=== PATIENT | female | born 2000 | race Two or more races ===

== ENCOUNTER → 2024-08-30 | Outpatient (CLI) | payer OTHER ==
[2024-08-30 11:43] LABS: Urine Bacteria None Seen /hpf (None Seen)
[2024-08-30 12:20] LABS: Urine Blood Negative /uL (Negative); Urine Clarity Clear (Clear); Urine Color Light-Yellow (Yellow); Urine Protein, UAD Negative (Negative); Urine Urobilinogen Normal (Negative); Urine WBC 1 /hpf (0 - 5); Urine pH 6.5 (5.0-9.0)
[2024-08-30 12:22] LABS: Basophils # (auto) 0 10 ^3/uL (0-0.2); Basophils % (auto) 0.5 % (0.0-2.0); Eosinophils # (auto) 0.3 10 ^3/uL (0-0.8); Eosinophils % (auto) 2.7 % (0.0-7.0); Hemoglobin 13.4 g/dL (12.2-16.2); Lymphocytes # (auto) 3.4 10 ^3/uL (0.4-5.4); Lymphocytes % (auto) 32.1 % (10.0-50.0); Mean Corpuscular Hemoglobin 27.4 pg (28.0-32.0); Mean Corpuscular Hgb Conc. 33.4 g/dL (32.0-36.0); Monocytes # (auto) 0.6 10 ^3/uL (0-1.3); Monocytes % (auto) 5.3 % (0.0-12.0); Neutrophils # (auto) 6.2 10 ^3/uL (1.6-8.6); Neutrophils % (auto) 59.4 % (37.0-80.0); Nucleated Red Blood Cells % 0.1 %; Platelet Count (auto) 304 10^3/uL (140-450); Red Blood Cells 4.88 10^6/uL (4.0-5.20); Red Cell Distribution Width 13.6 % (11.8-14.3); White Blood Cell 10.5 10^3/uL (4.4-10.8)
[2024-08-30 12:40] LABS: Uric Acid 4.4 mg/dL (3.1-7.8)
[2024-08-30 12:43] LABS: % Iron Saturation 16.1 % (15-50)
== END | disposition home or self-care (01) ==
LOC: LAB 11:18
PROVIDERS: ATTEND Family Medicine
DX: Z00.00 Encounter for general adult medical examination without abnormal findings (principal)
CPT/HCPCS: 36415; 81001; 82306; 82607; 83036; 83540; 83550; 83735; 84443; 84550; 85025; 87086

== ENCOUNTER 2025-07-12 11:11 | Emergency (ER) | payer OTHER ==
[~2025-07-12] VITALS: Ht 170.2 cm; Wt 148.3 kg
[2025-07-12 11:13] VITALS: BP 134/87; PULSE 104; RESP 15; TEMP 98.3; O2SAT 96
--- NOTE | 2025-07-12 12:00 | ED.PDOC ---
History of Present Illness(SKN HPI Comments A 25 YEAR OLD FEMALE PRESENTS TO THE ED WITH COMPLAINT OF ABSCESS. PT HAS CYST TO THE LOWER BACK FOR THE PAST 7 DAYS. PT IN THE ED HAS STABLE VITALS. PATIENT DENIES FEVER, CHILLS, SHORTNESS OF BREATH, CHEST PAIN, ABDOMINAL PAIN, NAUSEA, VOMITING, HEADACHE, OR OTHER COMPLAINTS. NO OTHER SYMPTOMS OR MODIFYING FACTORS AT THIS TIME. PATIENT IS ALERT, ORIENTED X 4, AND HAS STEADY GAIT. Chief Complaint: ABSCESS Time Seen by MD: 11:58 History of Present Illness: Nurses Notes, Medications, Allergies Allergies: Coded Allergies: NO KNOWN ALLERGIES (Unverified , 07/12/25) Home Meds Active Scripts Sulfamethoxazole W/Trimethopri (Bactrim Ds Tablet) 1 Tab Tb, 1 TAB PO BID for 10 Days, #20 TAB Prov:ANA M FAGAN 07/12/25 Ibuprofen (Ibuprofen) 800 Mg Tab, 1 TAB PO TID, #30 TAB Prov:ANA M FAGAN 07/12/25 Information Source: Patient Mode of Arrival: Ambulatory Brought in by: SELF Severity: Mild, Moderate Timing: Days Duration: Since onset, Days Prehospital treatment: None Location: Other ([facility] ) Mechanism: Preceding Wound Wound Type: Abscess Associated Signs and Symptoms: Redness, Swelling, Pus, Pain Past Medical History PAST MEDICAL HISTORY: Denies Surgical History: Denies all surgeries COMMUNITY OUTREACH DIRECTOR History: Denies all COMMUNITY OUTREACH DIRECTOR Hx Family History Family History: Reviewed,noncontributory to illness Social History Smoker: Non-Smoker Alcohol: Denies ETOH Use Drugs: Denies Drug Use Lives In: Home Constitutional: denies: chills, diaphoresis, fatigue, fever, malaise, sweats, weakness, others EENTM: denies: blurred vision, double vision, ear bleeding, ear discharge, ear drainage, ear pain, ear ringing, eye pain, eye redness, hearing loss, mouth pain, mouth swelling, nasal discharge, nose bleeding, nose congestion, nose pain, photophobia, tearing, throat pain, throat swelling, voice changes, others Respiratory: denies: cough, hemoptysis, orthopnea, SOB at rest, shortness of breath, SOB with excertion, stridor, wheezing, others Cardiovascular: denies: chest pain, dizzy spells, diaphoresis, Dyspnea on exertion, edema, irregular heart beat, left arm pain, lightheadedness, palpitations, PND, syncope, others Gastrointestinal: denies: abdomen distended, abdominal pain, blood streaked bowels, constipated, diarrhea, dysphagia, difficulty swallowing, hematemesis, melena, nausea, poor appetite, poor fluid intake, rectal bleeding, rectal pain, vomiting, others Genitourinary: denies: abnormal vagina bleeding, burning, dyspareunia, dysuria, flank pain, frequency, hematuria, incontinence, pain, , vagina discha rge, urgency, others Neurological: denies: dizziness, fainting, headache, left sided numbness, left sided weakness, numbness, paresthesia, pre-existing deficit, right sided numbness, right sided weakness, seizure, speech problems, tingling, tremors, weakness, others Musculoskeletal: denies: back pain, gout, joint pain, joint swelling, muscle pain, muscle stiffness, neck pain, others Integumetry: reports: lumps, others (ABSCESS TO LOWER BACK); denies: bruises, change in color, change in hair/nails, dryness, laceration, lesions, rash, wounds Allergic/Immunocompromised: denies: Difficulty Healing, Frequent Infections, Hives, Itching, others Hematologic/Lymphatic: denies: anemia, blood clots, easy bleeding, easy bruising, swollen glands, others Endocrine: denies: excessive hunger, excessive sweating, excessive thirst, excessive urination, flushing, intolerance to cold, intolerance to heat, unexplained weight gain, unexplained weight loss, others Psychiatric: denies: anxiety, bipolar disorder, depression, hopeless, panic disorder, schizophrenia, sleepless, suicidal, others All Other Systems: Reviewed and Negative Physical Exam General Appearance: Obese HEENT: Normal ENT Inspection, PERRL/EOMI, Pharynx Normal, TMs Normal Neck: Full Range of Motion, Non-Tender, Normal, Normal Inspection Respiratory: Chest Non-Tender, Lungs Clear, No Accessory Muscle Use, No Respiratory Distress, Normal Breath Sounds Cardiovascular: No Edema, No JVD, No Murmur, No Gallop, Normal Peripheral Pulses, Regular Rate/Rhythm Breast Exam: Deferred Gastrointestinal: No Organomegaly, Non Tender, No Pulsatile Mass, Normal Bowel Sounds, Soft Genitalia: Deferred Pelvic: Deferred Rectal: Deferred Extremities: No calf tenderness, Normal capillary refill, Normal range of motion, No pedal edema, Tender (WITH ABSCESS WOUND ON [place]. ) Musculoskeletal : Apperance: Normal Neurologic: Alert, iuss master analyst II-XII nml as Tested, No Motor Deficits, Normal Affect, Normal Mood, No Sensory Deficits Cerebellar Function: Normal Reflexes: Normal Skin: Dry, Normal Color, Warm, Wounds (ABSCESS WOUND WITH LOCALIZED REDNESS, SWELLING AND AL;LD PUS DRAINAGE ON [place], +PILONIDAL ABSCESS. ) Peripheral Pulses: 2+ carotid (R), 2+ carotid (L) Lymphatic: No Adenopathy Was a procedure done? Was a procedure done?: Yes Sedation Sedation?: No Incision and Drainage Incision and Drainage: Abscess Location [facility] Anesthetic: Lidocaine Preparation: Betadine, Saline Incision and Wound: Pus, Seroma, Amount, Irrigated, Packed Informed consent obtained: No Risks/benefits/alt described: Yes Differential Diagnosis (INTG) Differential Diagnosis: Puncture Wound Differential Diagnosis: Abscess, Cellulitis Differential Diagnosis: Retained Foreign Body (PILONIDAL CYST) Abscess: Abscess, Bacteremia, Cellulitis, Other X-Ray, Labs, Meds, VS Vital Signs Date Time Temp Pulse Resp B/P (MAP) Pulse Ox O2 Delivery O2 Flow Rate FiO2 07/12/25 11:13 98.3 104 15 134/87 (103) 96 98.3 07/12/25 11:13 104 15 96 Room Air 07/12/25 11:12 98.3 104 15 134/87 96 98.3 X-Ray, Labs, Meds, VS Comment COURSE: EXTERNAL MEDICAL RECORDS REVIEWED: [NONE] INDEPENDENT HISTORIANS: [NONE] SOCIAL DETERMINANTS OF HEALTH: [NONE] LABS ORDERED: NONE REVIEWED AND INTERPRETED RESULTS: NONE IMAGING ORDERED: NONE TREATMENTS ORDERED: ABSCESS I & D PROCEDURES PERFORMED: NONE CRITICAL CARE TIME: NONE I HAVE DISCUSSED THE PATIENT WITH THE ATTENDING PHYSICIAN DR. WILLIAM AND HE AGREES WITH THE PATIENT'S PLAN OF CARE AND DISPOSITION. BASED ON HISTORY OF PRESENT ILLNESS, AND PHYSICAL EXAM, PATIENT WILL BE DISCHARGED HOME. DISCUSSED PLAN FOR DISCHARGE HOME WITH RX [SEPTRA DS AND MOTRIN ]. MEDICATION WARNINGS GIVEN. SHARED DECISION MAKING: DISCUSSED WITH PATIENT THAT THEIR WORKUP WAS NORMAL. PATIENT INSTRUCTED TO FOLLOW UP WITH PRIMARY CARE PROVIDER IN 1-2 DAYS FOR RE- EVALUATION OF SYMPTOMS. PATIENT VERBALIZES UNDERSTANDING TO RETURN TO ED FOR NEW OR WORSENING SYMPTOMS OR IF FOLLOW UP WITH PCP CANNOT BE OBTAINED. PATIENT FEELS COMFORTABLE GOING HOME AT THIS TIME. ALL QUESTIONS ADDRESSED AT TIME OF DISCHARGE. Time of 1ST Reevaluation: 12:56 Reevaluation 1ST: Improved Patient Education/Counseling: Diagnosis, Treatment, Need For Follow Up Family Education/Counseling: Diagnosis, Treatment, No Family Present Medical Screening: No EMC Exist At This Time SEPSIS Sepsis Screen Date sepsis recognized/suspect: Jul 12, 2025 Time Sepsis recognized/suspect: 1114 Recent Procedure: No On Antibiotic Therapy: No Respiratory Rate >20: No Heart Rate >90: Yes Temp<36 C (96.8 F) or >38.3 C: No SBP <90 or MAP <65 mmHG: No New Acute Mental Status Change: No Is the patient on CPAP, BIPAP,: No Vital Signs Date Time Temp Pulse Resp B/P (MAP) Pulse Ox O2 Delivery O2 Flow Rate FiO2 07/12/25 11:13 98.3 104 15 134/87 (103) 96 98.3 07/12/25 11:13 104 15 96 Room Air 07/12/25 11:12 98.3 104 15 134/87 96 98.3 Departure 1 Departure Time of Disposition: 12:57 Impression: Primary Impression: Pilonidal abscess Disposition: 01 HOME / SELF CARE / HOMELESS Condition: Stable Additional Instructions: INSTRUCTIONS: FOLLOW-UP WITH PCP IN 1 TO 2 DAYS. TAKE MEDICATIONS PRESCRIBED. RETURN TO ED FOR ANY NEW OR WORSENING SYMPTOMS. e-Prescriptions Sulfamethoxazole W/Trimethopri (Bactrim Ds Tablet) 1 Tab Tb 1 TAB PO BID for 10 Days, #20 TAB Prov: ANA M FAGAN 07/12/25 Ibuprofen (Ibuprofen) 800 Mg Tab 1 TAB PO TID, #30 TAB Prov: ANA M FAGAN 07/12/25 Discharged With: Self Critical Care Note Critical Care Time?: No Stability Stability form required: No Heart Score Heart Score: Heart Score Response (Comments) Value History N/A 0 EKG N/A 0 Age N/A 0 Risk Factors N/A 0 Troponin N/A 0 Total 0 I personally scribed for ANA M FAGAN ([email or web address]) on 07/12/25 at 12:00. Electronically submitted by Junior Edward ([facility] I personally scribed for ANA M FAGAN ([email or web address]) on 07/12/25 at 12:10. Electronically submitted by Junior Edward ([email or web address]). ANA M FAGAN Jul 12, 2025 12:00
[2025-07-12] MEDS ORDERED: IBUP-1456 PO (12:11)
[2025-07-12] MEDS ORDERED: BACDST PO (12:11)
== END 2025-07-12 12:14 | disposition home or self-care (01) ==
LOC: ER 11:11
DX: L05.01 Pilonidal cyst with abscess (principal); Z79.899 Other long term (current) drug therapy; Z79.1 Long term (current) use of non-steroidal anti-inflammatories (NSAID)
CPT/HCPCS: 10080

== ENCOUNTER 2025-07-15 14:06 | Inpatient (IN) | payer OTHER ==
[~2025-07-15] VITALS: Ht 170.2 cm; Wt 136.1 kg
[~2025-07-15 14:06] MED LIST: BACDST PO; IBUP-1456 PO
[2025-07-15] MEDS: ALBUTEROL SULF 2.5 MG/0.5ML(0.5%) NEB SOLN NEB ONE ×3 (14:33→18:47)
[2025-07-15] MEDS: IPRATROPIUM BROM 0.5 MG/2.5ML INH SOL NEB ONE ×2 (14:33→18:47)
[2025-07-15 14:48] LABS: Hematocrit 40.7 % (36.0-46.0); Hemoglobin 14.2 g/dL (12.2-16.2); Mean Corpuscular Hemoglobin 27.8 pg (28.0-32.0); Mean Corpuscular Volume 79.4 fL (80.0-100.0); Nucleated Red Blood Cells % 0.2 %
[2025-07-15 14:53] LABS: Potassium 3.8 mmol/L (3.5-5.1); Sodium 138 mmol/L (136-145)
[2025-07-15 14:54] LABS: Anion Gap 0 (5-15); Carbon Dioxide 25 mmol/L (20-31)
[2025-07-15 14:55] LABS: Calcium 9.3 mg/dL (8.7-10.4)
--- NOTE | 2025-07-15 14:57 | DVH ---
EXAM: XY CHEST TWO VIEWS ROUTINE CLINICAL HISTORY: ro pna TECHNIQUE: Frontal and lateral views of the chest WID: COMPARISON: None FINDINGS: Lines and tubes: None Chest: The heart size and pulmonary vasculature is within normal limits. No pleural effusion, pneumothorax, or consolidation. The osseous structures are grossly intact. IMPRESSION: 1. No acute cardiopulmonary abnormality.
[2025-07-15 15:00] LABS: BUN/Creatinine Ratio 8.5 (10.0-20.0); Glucose 103 mg/dL (74-106)
--- NOTE | 2025-07-15 15:03 | ED.PDOC ---
SOB-HPI HPI Comments 25 y.o female presents to the ED for a chief complaint of SOB associated with a runny nose, a cough, yellow phlegm sputum and chest pain that started x 2 days ago. These symptom started s/p being d/c from the ED for an unrelated c/o that consist of an abscess to her hand. She denies any fever, chills, nausea, vomiting, diarrhea, abdominal pain. She had an SPO2 of 94% on RA upon ED arrival and was placed on a breathing treatment here which improved her symptoms. She has medical history of anxiety. Chief Complaint: Cough Time Seen by MD: 14:53 Reviewed notes: Nurses Notes, Medications, Allergies Information Source: Patient Mode of Arrival: Ambulatory Severity: Moderate Timing: Days (2) Duration: Since onset Context: At Rest PE Risk Factors: None History of: None Modifying Factors: Nothing Associated Signs and Symptoms: Wheeze, Cough If cough with SOB: Productive, Yellow Past Medical History PAST MEDICAL HISTORY: Denies Surgical History: Denies all surgeries SOUNDSCRIBER MECHANIC History: Denies all SOUNDSCRIBER MECHANIC Hx Family History Family History: Reviewed,noncontributory to illness Social History Smoker: Non-Smoker Alcohol: Denies ETOH Use Drugs: Denies Drug Use Lives In: Home Constitutional: denies: chills, diaphoresis, fatigue, fever, malaise, sweats, weakness, others EENTM: denies: blurred vision, double vision, ear bleeding, ear discharge, ear drainage, ear pain, ear ringing, eye pain, eye redness, hearing loss, mouth pain, mouth swelling, nasal discharge, nose bleeding, nose congestion, nose pain, photophobia, tearing, throat pain, throat swelling, voice changes, others Respiratory: reports: cough, wheezing; denies: hemoptysis, orthopnea, SOB at rest, shortness of breath, SOB with excertion, stridor, others Cardiovascular: denies: chest pain, dizzy spells, diaphoresis, Dyspnea on exertion, edema, irregular heart beat, left arm pain, lightheadedness, palpitations, PND, syncope, others Gastrointestinal: denies: abdomen distended, abdominal pain, blood streaked bowels, constipated, diarrhea, dysphagia, difficulty swallowing, hematemesis, melena, nausea, poor appetite, poor fluid intake, rectal bleeding, rectal pain, vomiting, others Genitourinary: denies: abnormal vagina bleeding, burning, dyspareunia, dysuria, flank pain, frequency, hematuria, incontinence, pain, , vagina discharge, urgency, others Neurological: denies: dizziness, fainting, headache, left sided numbness, left sided weakness, numbness, paresthesia, pre-existing deficit, right sided numbness, right sided weakness, seizure, speech problems, tingling, tremors, weakness, others Musculoskeletal: denies: back pain, gout, joint pain, joint swelling, muscle pain, muscle stiffness, neck pain, others Integumetry: denies: bruises, change in color, change in hair/nails, dryness, laceration, lesions, lumps, rash, wounds, others Allergic/Immunocompromised: denies: Difficulty Healing, Frequent Infections, Hives, Itching, others Hematologic/Lymphatic: denies: anemia, blood clots, easy bleeding, easy bruising, swollen glands, others Endocrine: denies: excessive hunger, excessive sweating, excessive thirst, excessive urination, flushing, intolerance to cold, intolerance to heat, unexplained weight gain, unexplained weight loss, others Psychiatric: denies: anxiety, bipolar disorder, depression, hopeless, panic disorder, schizophrenia, sleepless, suicidal, others All Other Systems: Reviewed and Negative Physical Exam General Appearance: Moderate Distress HEENT: Normal ENT Inspection, Pharynx Normal, TMs Normal Neck: Full Range of Motion, Non-Tender, Normal, Normal Inspection Respiratory: Respiratory Distress Cardiovascular: Tachycardia Breast Exam: Deferred Gastrointestinal: No Organomegaly, Non Tender, No Pulsatile Mass, Normal Bowel Sounds, Soft Genitalia: Deferred Pelvic: Deferred Rectal: Deferred Extremities: Other (No calf swelling bilaterally) Musculoskeletal : Apperance: Normal Neurologic: Alert, No Motor Deficits, Normal Affect, Normal Mood, No Sensory Deficits Cerebellar Function: Normal Reflexes: Normal Skin: Dry, Normal Color, Warm Lymphatic: No Adenopathy Was a procedure done? Was a procedure done?: No Differential Dx Differential Diagnosis: Bronchitis, Pneumonia, Pulmonary Embolism, Respiratory Distress, URI X-Ray, Labs, Meds, VS Vital Signs Date Time Temp Pulse Resp B/P (MAP) Pulse Ox O2 Delivery O2 Flow Rate FiO2 07/15/25 15:20 18 98 Room Air* 0 21 07/15/25 15:08 98.6 112 20 150/82 (104) 92 98.6 11/8/25 15:08 112 07/15/25 14:34 94 Room Air* 0 21 07/15/25 14:09 99.0 106 20 140/88 94 99.0 Lab Test 07/15/25 14:37 Range/Units White Blood Count 10.3 4.4-10.8 10^3/uL Red Blood Count 5.13 4.0-5.20 10^6/uL Hemoglobin 14.2 12.2-16.2 g/dL Hematocrit 40.7 36.0-46.0 % Mean Corpuscular Volume 79.4 L 80.0-100.0 fL Mean Corpuscular Hemoglobin 27.8 L 28.0-32.0 pg Mean Corpuscular Hemoglobin Concent 35.0 32.0-36.0 g/dL Red Cell Distribution Width 13.8 11.8-14.3 % Platelet Count 338 140-450 10^3/uL Mean Platelet Volume 6.8 L 6.9-10.8 fL Neutrophils (%) (Auto) 74.8 37.0-80.0 % Lymphocytes (%) (Auto) 13.8 10.0-50.0 % Monocytes (%) (Auto) 7.3 0.0-12.0 % Eosinophils (%) (Auto) 3.5 0.0-7.0 % Basophils (%) (Auto) 0.6 0.0-2.0 % Neutrophils # (Auto) 7.7 1.6-8.6 10 ^3/uL Lymphocytes # (Auto) 1.4 0.4-5.4 10 ^3/uL Monocytes # (Auto) 0.8 0-1.3 10 ^3/uL Eosinophils # (Auto) 0.4 0-0.8 10 ^3/uL Basophils # (Auto) 0.1 0-0.2 10 ^3/uL Nucleated Red Blood Cells 0.2 % D-Dimer, Quantitative 0.54 H 0.0-0.49 mg/L FEU Sodium Level 138 136-145 mmol/L Potassium Level 3.8 3.5-5.1 mmol/L Chloride Level 113 H 98-107 mmol/L Carbon Dioxide Level 25 20-31 mmol/L Anion Gap 0 L 5-15 Blood Urea Nitrogen 6 L 9-23 mg/dL Creatinine 0.71 0.550-1.02 mg/dL Glomerular Filtration Rate Calc 121 >90 mL/min BUN/Creatinine Ratio 8.5 L 10.0-20.0 Serum Glucose 103 74-106 mg/dL Calcium Level 9.3 8.7-10.4 mg/dL Current Medications Medications (Trade) Dose Ordered Sig/Hans Route Start Time Stop Time Status Last Admin Albuterol (Ventolin Medneb) 5 mg ONCE ONCE NEB 07/15/25 14:30 07/15/25 14:31 DC 07/15/25 14:33 Ipratropium [place] (Atrovent Medneb) 0.5 mg ONCE ONCE NEB 07/15/25 14:30 07/15/25 14:31 DC 07/15/25 14:33 Dexamethasone Sodium Phosphate (Decadron Injection) 10 mg ONCE ONCE PO 07/15/25 14:30 07/15/25 14:31 DC 07/15/25 15:13 Albuterol (Ventolin Medneb) 5 mg ONCE ONCE NEB 07/15/25 15:15 07/15/25 15:16 DC 07/15/25 15:20 [place] [id number] Ph: [phone] DIAGNOSTIC IMAGING Diagnostic Imaging Report : [id number] Signed PATIENT: COLBY CROW ACCT: [id number] UNIT: [id number] : 2000 LOC: ER ROOM / BED: / AGE / SEX: 25 / F ADM STATUS: REG ER SERVICE 1416 ORDERING PHYSICIAN: DEEPAK TATUM MD PROCEDURE(s): CXR2 - CHEST TWO VIEWS ROUTINE REASON: ro pna ORDER NUMBER(s): [id number], ACCESSION NUMBER(s): [id number] EXAM: XY CHEST TWO VIEWS ROUTINE CLINICAL HISTORY: ro pna TECHNIQUE: Frontal and lateral views of the chest WID: COMPARISON: None FINDINGS: Lines and tubes: None Chest: The heart size and pulmonary vasculature is within normal limits. No pleural effusion, pneumothorax, or consolidation. The osseous structures are grossly intact. IMPRESSION: 1. No acute cardiopulmonary abnormality. ATED BY: MALINI SUTHERLAND MD DICTATED DATE/TIME: 07/15/25 1454 SIGNED BY: MALINI SUTHERLAND MD SIGNED DATE/TIME: 07/15/25 1454 CC: 25-year-old female presents here with 4 days of cough runny nose and sore throat. No sick contacts. Denies any vomiting diarrhea or fevers. Patient is having chills. Patient was found to be saturating 94% on room air initially. And found to be wheezing. Also tachycardic. Patient was written for albuterol ipratropium and dexamethasone by myself. On re-evaluation she states she is feeling better. She continues to have diminished breath sounds on examination. Chest x-ray with no acute pathology. CBC and BMP have been ordered and are pending. I considered possible PE and D-dimer has been ordered. At this time D-dimer returned elevated. A CT angio has been ordered. I have given the patient multiple breathing treatments however she continues to be hypoxic. She has dropped down to 88% on room air and become tachycardic immediately upon walking. I believe she would benefit from inpatient admission. I have started her on Rocephin and azithromycin IV for possible pneumonia. Hospitalist team has been contacted. CT angio report is still pending. Time of 1ST Reevaluation: 15:30 Reevaluation 1ST: Unchanged Time of 2ND Reevaluation: 17:45 Reevaluation 2ND: Unchanged Patient Education/Counseling: Diagnosis, Treatment, Prognosis Family Education/Counseling: No Family Present SEPSIS Sepsis Screen Date sepsis recognized/suspect: Jul 15, 2025 Time Sepsis recognized/suspect: 1413 Recent Procedure: No On Antibiotic Therapy: No Respiratory Rate >20: No Heart Rate >90: Yes Temp<36 C (96.8 F) or >38.3 C: No SBP <90 or MAP <65 mmHG: No New Acute Mental Status Change: No Is the patient on CPAP, BIPAP,: No Physician Orders Chest Two Views Routine (07/15/25 14:16) Ct Angio Chest Contrast (07/15/25 16:18) Test, Urine (07/15/25 16:41) Vital Signs Date Time Temp Pulse Resp B/P (MAP) Pulse Ox O2 Delivery O2 Flow Rate FiO2 07/15/25 15:20 18 98 Room Air* 0 21 07/15/25 15:08 98.6 112 20 150/82 (104) 92 98.6 07/15/25 15:08 112 07/15/25 14:34 94 Room Air* 0 21 07/15/25 14:09 99.0 106 20 140/88 94 99.0 Laboratory Tests Test 07/15/25 14:37 White Blood Count 10.3 10^3/uL (4.4-10.8) Medications Medications Dose Ordered Sig/Hans Route Start Time Stop Time Status Last Admin Dose Admin Albuterol 5 mg ONCE ONCE NEB 07/15/25 14:30 07/15/25 14:31 DC 07/15/25 14:33 Albuterol 5 mg ONCE ONCE NEB 07/15/25 15:15 07/15/25 15:16 DC 07/15/25 15:20 Dexamethasone Sodium Phosphate 10 mg ONCE ONCE PO 07/15/25 14:30 07/15/25 14:31 DC 07/15/25 15:13 Ipratropium [place] 0.5 mg ONCE ONCE NEB 07/15/25 14:30 07/15/25 14:31 DC 07/15/25 14:33 Departure 1 Departure Time of Disposition: 17:45 Impression: Primary Impression: Shortness of breath Additional Impression: Hypoxia Disposition: ADMITTED INPATIENT Condition: Fair Critical Care Note Critical Care Time?: Yes (35 min-critical care time only) Critical care comment: Time spent with multiple re-evaluations of the patient given her putting at this, time spent speaking to the patient, reviewing her imaging studies and lab work, speaking to hospitalist team Stability Stability form required: No Heart Score Heart Score: Heart Score Response (Comments) Value History N/A 0 EKG N/A 0 Age N/A 0 Risk Factors N/A 0 Troponin N/A 0 Total 0 I personally scribed for DEEPAK TATUM MD ([email or web address]) on 07/15/25 at 15:03. Electronically submitted by Rebecca Noble ([facility]). DEEPAK TATUM MD Jul 15, 2025 15:03
[2025-07-15 15:08] LABS: Blood Urea Nitrogen 6 mg/dL (9-23); Chloride 113 mmol/L (98-107)
[2025-07-15] MEDS: IOHEXOL 350 MG/ML 100ML IJ ONE (17:02)
--- NOTE | 2025-07-15 18:00 | DVH ---
EXAM: CT CT ANGIO CHEST CONTRAST HISTORY: Rule out PE TECHNIQUE: CT angiogram was performed. CT scans at this facility use dose modulation, iterative reconstruction, and/or weight based dosing when appropriate to reduce radiation dose to as low as reasonably achievable. Coronal and sagittal reformations and maximum intensity projection images were created from the transaxial source data by the radiographic technologist and workstation, as well as 3-D volume rendered images with MIPs. COMPARISON: None FINDINGS: [LOWER NECK]: Unremarkable [LYMPH NODES/MEDIASTINUM]: Likely reactive right lower paratracheal, right hilar subcentimeter lymph nodes rebound versus hyperplastic versus residual thymic tissue [CARDIOVASCULAR]: Normal cardiac size. No pericardial effusion. No aneurysmal dilatation of the great vessels. No significant coronary artery calcifications. [PULMONARY ARTERIES]: No pulmonary arterial filling defect. Normal caliber of the main pulmonary artery. No evidence of elevated right heart pressures. [UPPER ABDOMEN]: Unremarkable. [MUSCULOSKELETAL]: No acute fracture or aggressive focal osseous lesion. [CHEST WALL]: Unremarkable. [LUNG PARENCHYMA/PLEURAL SPACE]: No consolidation, suspicious focal airspace opacity, or suspicious nodules. No pleural effusion or pneumothorax. Mosaic attenuation of the lung parenchyma, suggesting small airways disease. Common etiologies include asthma, bronchitis, obesity, hypersensitivity pneumonitis, or constrictive bronchiolitis. IMPRESSION: 1. No CTA evidence of pulmonary embolism. 2. Mosaic attenuation of the lung parenchyma, suggesting small airways disease. Common etiologies include asthma, bronchitis, obesity, hypersensitivity pneumonitis, or constrictive bronchiolitis. 3. Likely reactive right lower paratracheal, right hilar subcentimeter lymph nodes rebound versus hyperplastic versus residual thymic tissue
[2025-07-15] MEDS: AZITHROMYCIN 500MG/ 250ML 250 ML IV ONE (20:30)
[2025-07-16] VITALS (11 sets, daily range): BP systolic 98–133; BP diastolic 48–78; PULSE 72–92; RESP 17–20; TEMP 97.7–98; O2SAT 90–99
[2025-07-16] MEDS ORDERED: HYDROcodone-ACET 5/325MG TAB PO PRN (02:30)
[2025-07-16] MEDS ORDERED: guaiFENesin-DM 100/10mg/5ml SYR PO PRN (02:30)
[2025-07-16] MEDS ORDERED: ONDANSETRON HCL 4 MG/2 ML VIAL IV PRN (02:30)
[2025-07-16] MEDS ORDERED: IPRATROPIUM BROM 0.5 MG/2.5ML INH SOL NEB PRN (02:30)
[2025-07-16] MEDS ORDERED: DOCUSATE SOD 100 MG CAP PO PRN (02:30)
[2025-07-16] MEDS ORDERED: ALBUTEROL SULF 2.5 MG/0.5ML(0.5%) NEB SOLN NEB PRN (02:30)
--- NOTE | 2025-07-16 02:34 | DVHHPRES ---
History of Present Illness Resident Creating Document: ASHOK CARREON RESIDENT Reason for Visit: Trouble breathing / shortness of breath with cough and chest tightnes History of Present Illness 25-year-old female with history of anxiety and recent abscess in the tail bone region (treated with trimethoprim-sulfamethoxazole) presents with 2 days of progressive shortness of breath, associated with: * Productive cough with yellow phlegm, no blood * Runny nose and upper respiratorytype symptoms * Chest tightness and chest pain (likely pleuritic/with coughing) * Orthopnea difficulty lying flat, needing multiple pillows, improved when sitting upright * Chills and sweating earlier in the course (now resolved) Timeline: * 07/12/2025 Seen in ED for lower back wound, hemodynamically stable, no SOB or chest pain; discharged home with wound care instructions. * Within ~24 hours of that visit, she began to feel sick with cough, shakes, feeling hot, and then developed constant shortness of breath that worsened by the day before presentation; she could not sleep due to dyspnea. * 07/15/2025 (today) Presents to ED with ongoing SOB, cough, chest tightness, and runny nose. In ED: * Initial SpO? 94% on room air, HR initially 106, now 92, RR 20, BP 126/74, afebrile. * She was given nebulized ipratropium 0.5 mg + albuterol 0.5 mg, IV dexamethasone, ceftriaxone, and azithromycin with subjective improvement in SOB and chest tightness. * Physical exam in ED notable for wheezing on auscultation. * CXR: No acute cardiopulmonary abnormality. * CTA chest (07/15/2025): * No evidence of pulmonary embolism. * Mosaic attenuation of lung parenchyma, suggesting small airway disease; common etiologies include asthma, bronchitis, obesity, hypersensitivity pneumonitis, or constrictive bronchiolitis. * Likely reactive right lower paratracheal and right hilar lymph nodes; residual thymic tissue vs rebound hyperplasia. She reports: * SOB was constant before ED, now improved but not resolved after breathing treatments. * SOB present at rest and with exertion before arrival; orthopnea present. * Cough is productive with yellow sputum; no hemoptysis. * Runny nose and URTI symptoms; no known pneumonia or prior asthma diagnosis. * No known history of asthma, COPD, or prior bronchitis, TB, or recurrent pneumonias. * No history of heart failure, coronary disease, or arrhythmias. * Denies current fever, nausea, vomiting, diarrhea, abdominal pain, or leg swelling. Substance and exposure history: * No tobacco smoking. * Uses marijuana regularly, by both vaping and smoking (burning). * Denies methamphetamine or other hard drugs. * No specific new occupational or environmental exposure reported (no new dust, chemicals, etc mentioned). No systemic symptoms to suggest ongoing sepsis. Given persistent bronchospastic symptoms with wheeze, imaging consistent with small airway disease, and need for continued inhaled and systemic therapy with monitoring, decision made to admit to inpatient medicine. Past Medical History * Anxiety disorder * Recent lower back/tailbone cyst, abcess(treated with trimethoprimsulfamethoxazole; currently healing). Past Surgical History * Denies prior surgeries. Family History No significant family history. Past Social History * Lives at home * Tobacco: Denies cigarette smoking. * Vaping: Vapes marijuana; denies nicotine vaping. * Marijuana: Yes, via vaping and smoking (burning). * Illicit drugs: Denies methamphetamine or other hard drugs. * Employment and occupational exposures: Not specified. * contraception: test negative Review of Systems Review of Systems * Constitutional: Prior chills and sweats; denies current fever, weight loss. * HEENT: Runny nose, mild congestion. Denies sore throat, hoarseness, visual changes. * Respiratory: Shortness of breath, orthopnea, productive cough with yellow sputum, chest tightness, wheezing. No hemoptysis. * Cardiovascular: Chest discomfort/tightness (likely pleuritic/cough-related). Denies palpitations, syncope, leg swelling, PND beyond orthopnea described. * GI: Denies nausea, vomiting, diarrhea, abdominal pain, melena, hematochezia. * : No dysuria, hematuria, frequency, flank pain. * Neuro: No headache, focal deficits, dizziness, or seizure. * Skin: cyst/abscess at lower back/tailbone region. No new rashes reported. * Psych: History of anxiety; anxious during dyspnea episodes but denies suicidal ideation. * Allergic/Immunologic: No known drug allergies reported; no history of anaphylaxis. Allergies: Coded Allergies: NO KNOWN ALLERGIES (Unverified , 07/12/25) Medications Current Medications Medications Dose Ordered Sig/Hans Route Start Time Stop Time Status Last Admin Dose Admin Acetaminophen/ Hydrocodone Bitart 1 tab Q4HP PRN PO 07/16/25 02:30 Ondansetron HCl 4 mg Q4HP PRN IV 07/16/25 02:30 Docusate Sodium 100 mg BIDPRN PRN PO 07/16/25 02:30 Enoxaparin Sodium 40 mg DAILY SC 07/16/25 10:00 Acetaminophen 650 mg Q6HP PRN PO 07/16/25 02:30 Ipratropium [place] 0.5 mg Q4HPRN PRN NEB 07/16/25 02:30 Albuterol 2.5 mg Q4HPRN PRN NEB 07/16/25 02:30 Prednisone 40 mg DAILY PO 07/16/25 10:00 07/21/25 10:00 Ceftriaxone Sodium 50 ml @ 100 mls/hr DAILY@09 IV 07/16/25 09:00 UNV Azithromycin 250 ml @ 125 mls/hr DAILY IV 07/16/25 10:00 UNV Guaifenesin/ Dextromethorphan 10 ml Q4HP PRN PO 07/16/25 02:30 UNV Exam Vital Signs Vital Signs Date Time Temp Pulse Resp B/P (MAP) Pulse Ox O2 Delivery O2 Flow Rate FiO2 07/15/25 20:38 98.0 92 20 126/75 (92) 94 98.0 07/15/25 19:02 Room Air* 0 21 Exam General:Young woman, alert and oriented, mildly anxious, speaking in full sentences, no acute distress after bronchodilator therapy. HEENT:Normocephalic, atraumatic. Conjunctiva clear. Nasal mucosa mildly congested, clear rhinorrhea. Oropharynx moist, no exudates or significant erythema, no tonsillar enlargement. No stridor. Neck:Supple, no JVD. No cervical lymphadenopathy palpated. Lungs/Respiratory: * Normal chest expansion and symmetry. * No use of accessory muscles at rest now. * On auscultation: Mild expiratory wheezes bilaterally, no focal crackles, no rhonchi. Breath sounds otherwise present and symmetric. * No dullness to percussion. Cardiovascular:Regular rate and rhythm, no murmurs, rubs, or gallops. Peripheral pulses 2+ bilaterally. No lower extremity edema. Abdomen:Soft, non-tender, non-distended. Normal bowel sounds. No hepatosple nomegaly or masses. Extremities:No clubbing, cyanosis, or edema. No calf tenderness. Skin:Reported cyst/abscess near tailbone/lower back area with localized induration/erythema Neuro:Alert, oriented x3. No focal deficits. Moves all extremities spontaneo usly. Labs/Xrays Labs Test 07/15/25 21:30 07/15/25 14:37 Range/Units Urine Test Negative Negative White Blood Count 10.3 4.4-10.8 10^3/uL Red Blood Count 5.13 4.0-5.20 10^6/uL Hemoglobin 14.2 12.2-16.2 g/dL Hematocrit 40.7 36.0-46.0 % Mean Corpuscular Volume 79.4 L 80.0-100.0 fL Mean Corpuscular Hemoglobin 27.8 L 28.0-32.0 pg Mean Corpuscular Hemoglobin Concent 35.0 32.0-36.0 g/dL Red Cell Distribution Width 13.8 11.8-14.3 % Platelet Count 338 140-450 10^3/uL Mean Platelet Volume 6.8 L 6.9-10.8 fL Neutrophils (%) (Auto) 74.8 37.0-80.0 % Lymphocytes (%) (Auto) 13.8 10.0-50.0 % Monocytes (%) (Auto) 7.3 0.0-12.0 % Eosinophils (%) (Auto) 3.5 0.0-7.0 % Basophils (%) (Auto) 0.6 0.0-2.0 % Neutrophils # (Auto) 7.7 1.6-8.6 10 ^3/uL Lymphocytes # (Auto) 1.4 0.4-5.4 10 ^3/uL Monocytes # (Auto) 0.8 0-1.3 10 ^3/uL Eosinophils # (Auto) 0.4 0-0.8 10 ^3/uL Basophils # (Auto) 0.1 0-0.2 10 ^3/uL Nucleated Red Blood Cells 0.2 % D-Dimer, Quantitative 0.54 H 0.0-0.49 mg/L FEU Sodium Level 138 136-145 mmol/L Potassium Level 3.8 3.5-5.1 mmol/L Chloride Level 113 H 98-107 mmol/L Carbon Dioxide Level 25 20-31 mmol/L Anion Gap 0 L 5-15 Blood Urea Nitrogen 6 L 9-23 mg/dL Creatinine 0.71 0.550-1.02 mg/dL Glomerular Filtration Rate Calc 121 >90 mL/min BUN/Creatinine Ratio 8.5 L 10.0-20.0 Serum Glucose 103 74-106 mg/dL Calcium Level 9.3 8.7-10.4 mg/dL SEPSIS Sepsis Screen Date sepsis recognized/suspect: Jul 15, 2025 Time Sepsis recognized/suspect: 2039 Recent Procedure: No On Antibiotic Therapy: No Respiratory Rate >20: No Heart Rate >90: Yes Temp<36 C (96.8 F) or >38.3 C: No SBP <90 or MAP <65 mmHG: No New Acute Mental Status Change: No Is the patient on CPAP, BIPAP,: No Physician Orders Admit (07/15/25 23:46) Vital Signs .PER UNIT PROTOCOL (07/15/25 23:46) Review Orders With Adm.Md (07/15/25 23:46) Notify Md Of Changes From Base (07/15/25 23:46) Advance Directive (07/15/25 23:46) Patient Condition (07/15/25 23:46) Allergies (07/15/25 23:46) Oxygen By Nasal Cannula (07/15/25 23:46) Code Status (07/16/25 02:17) Oxygen Per Hour (07/16/25 02:17) Hydrocodone-Acet 5/325mg Tab (Proctor 5/32 (07/16/25 02:30) Ondansetron Hcl (Zofran) (07/16/25 02:30) Docusate Sodium Capsule (Colace Capsule) (07/16/25 02:30) Enoxaparin Sodium (Lovenox) (07/16/25 10:00) Complete Blood Count (07/17/25 04:00) Comprehensive Metabolic Panel (07/17/25 04:00) Condition: Unstable (07/16/25 02:17) Acetaminophen Tablet (Tylenol Tablet) (07/16/25 02:30) Ipratropium Medneb (Atrovent Medneb) (07/16/25 02:30) Albuterol Medneb (Ventolin Medneb) (07/16/25 02:30) Med Neb Initial Treatment (07/16/25 02:17) Prednisone Tablet (07/16/25 10:00) Oxygen By Nasal Cannula (07/16/25 02:17) Electrocardigram (07/16/25 02:17) Ceftriaxone 1gm/50ml (Rocephin) (07/16/25 09:00) Azithromycin 500mg/ 250ml (Zithromax 50 (07/16/25 10:00) Guaifenesin-Dextromet Liquid (Robitussin (07/16/25 02:30) Rapid Influenza A&B (07/16/25 02:17) Covid19 Antigen Charley (07/16/25 ) Respiratory Syncytial Virus Ag (07/16/25 02:17) Thyroid Stimulating Hormone (07/16/25 02:17) Vitamin B12 (07/16/25 02:17) Folate (Folic Acid) (07/16/25 02:17) Hi Wound Care (07/16/25 02:17) Cleanse Wound With Ns (07/16/25 02:17) Cleanse Wound W/ Sterile Gauze (07/16/25 02:17) Wound Dressing: BID (07/16/25 02:17) Regular Diet (07/16/25 Breakfast) Hemoglobin A1c (07/16/25 02:17) Vital Signs Date Time Temp Pulse Resp B/P (MAP) Pulse Ox O2 Delivery O2 Flow Rate FiO2 07/15/25 20:38 98.0 92 20 126/75 (92) 94 98.0 07/15/25 19:16 98.0 100 22 149/83 (105) 94 98.0 07/15/25 19:02 18 98 Room Air* 0 21 Laboratory Tests Test 07/15/25 14:37 White Blood Count 10.3 10^3/uL (4.4-10.8) Medications Medications Dose Ordered Sig/Hans Route Start Time Stop Time Status Last Admin Dose Admin Albuterol 5 mg ONCE ONCE NEB 07/15/25 15:15 07/15/25 15:16 DC 07/15/25 15:20 5 MG Albuterol 5 mg ONCE ONCE NEB 07/15/25 18:30 07/15/25 18:31 DC 07/15/25 18:47 5 MG Azithromycin 250 ml @ 125 mls/hr ONCE ONCE IV 07/15/25 18:30 07/15/25 20:29 DC 07/15/25 20:30 125 MLS/HR Ceftriaxone Sodium 50 ml @ 100 mls/hr ONCE ONCE IV 07/15/25 18:30 07/15/25 18:59 DC 07/15/25 19:45 100 MLS/HR Ipratropium [place] 0.5 mg ONCE ONCE NEB 07/15/25 18:30 07/15/25 18:31 DC 07/15/25 18:47 0.5 MG Assessment/Plan Assessment/Plan ASSESSMENT acute asthma/reactive airway disease vs viral/atypical bronchitis with bronchospasm (POA) * Evidence: SOB, wheezing, chest tightness, orthopnea, mosaic attenuation on CTA, improvement with nebs and steroids, Acute upper respiratory infection / acute bronchitis (POA) * Manifested by cough with yellow sputum, runny nose, prior chills, Marijuana use (smoked and vaped) possible contributor to bronchospasm and small airway disease (chronic comorbidity) * Needs counseling and documentation; may contribute to recurrent episodes. History of anxiety disorder (chronic) * May amplify perception of dyspnea and complicate symptom control in acute illness. sacral/lower back cyst/abscess (POA) * Currently on Septra DS; no systemic signs of infection; PLAN new-onset asthma vs bronchitis with bronchospasm Admit to MedicalSurgical floor * Respiratory Treatments: * Nebulized bronchodilators: * IpratropiumAlbuterol (Duoneb) q46h scheduled x 2448h, then PRN. * Additional Albuterol nebs PRN q2h for breakthrough wheeze. * Systemic steroids: * Start Prednisone 40 mg PO daily for 5 days * Oxygen: * O2 via nasal cannula PRN to maintain SpO2 94%. * RT for inhaler/nebulizer teaching and to assist with bronchodilator schedule and airway clearance. * Incentive spirometry and deep-breathing exercises. * Workup / Monitoring: * Serial vital signs and pulse oximetry. * spirometry/PFTs as outpatient once acute episode resolves to formally diagnose asthma/small airway disease. * viral respiratory panel (COVID/flu/RSV) to clarify infectious trigger. Acute upper respiratory infection / acute bronchitis * Antibiotics: * ceftriaxone + azithromycin. * Symptom Management: * PRN guaifenesin for sputum/thinning. * PRN benzonatate for cough * Adequate hydration (IV fluids PRN if oral intake poor). Orthopnea secondary to bronchospasm * Reassurance and explanation that this is likely due to small airway disease, not heart failure, based on current evidence. * Continue bronchodilator and steroid therapy as above. * BNP, echocardiogram, Marijuana/vaping use * Provided brief counseling on association between marijuana smoking/vaping and airway inflammation and small airway disease. * Offered smoking/vaping cessation resources; outpatient referral to behavioral health or addiction services Anxiety disorder * Used non-pharmacologic strategies: explanation, reassurance, breathing techniques. * Low-dose PRN anxiolytic (e.g., hydroxyzine) can be considered if anxiety significantly worsens dyspnea perception, avoiding respiratory depressants. lower back/tailbone cyst/abscess * Wound care consult for assessment and dressing change * Continue TMP-SMX Course. * Monitor for signs of spreading infection (fever, increasing redness, fluctuance). * No evidence of systemic infection or sepsis at present. PROPHYLAXIS & GENERAL INPATIENT CARE * VTE Prophylaxis: * Start Enoxaparin 40 mg SQ daily (if no contraindications) + encourage early ambulation. * GI Prophylaxis: * Pantoprazole 40 mg PO daily. * Fall Precautions: * Standard fall precautions; patient likely low risk but clarify. REQUIRED STATEMENT Case discussed in detail with the attending physician, including the clinical presentation, diagnostic workup, and comprehensive management plan. The patient was present for the discussion and demonstrated understanding of her condition and the proposed plan. Patient verbally consented to hospital admission and a greed to the outlined evaluation and treatment strategies, including imaging, labs, medication initiation, specialist consultations, and supportive care. Plan discussed with: Patient My Orders Orders - ASHOK CARREON RESIDENT Procedure Category Date Status Time Admit ADMIT 07/15/25 Transmitted 23:46 Vital Signs [facility] 07/15/25 In Process 23:46 Review Orders With [facility] 07/15/25 In Process Adm. 23:46 Notify Of Changes KEENA 07/15/25 In Process From Base 23:46 Advance Directive [facility] 07/15/25 In Process 23:46 Patient Condition ORDERS 07/15/25 Transmitted 23:46 Allergies KEENA 07/15/25 In Process 23:46 Oxygen By Nasal RT 07/15/25 Transmitted Cannula 23:46 Code Status CODE 07/16/25 Transmitted 02:17 Oxygen Per Hour RT 07/16/25 Transmitted 02:17 Hydrocodone-Acet PHA 07/16/25 In Process 5/325mg Tab (Proctor 02:30 Ondansetron Hcl PHA 07/16/25 In Process (Zofran) 02:30 Docusate Sodium PHA 07/16/25 In Process Capsule (Colace 02:30 Enoxaparin Sodium PHA 07/16/25 In Process (Lovenox) 10:00 Complete Blood Count LAB 07/17/25 Verified 04:00 Comprehensive LAB 07/17/25 Verified Metabolic Panel 04:00 Condition: Unstable KEENA 07/16/25 In Process 02:17 Acetaminophen Tablet PHA 07/16/25 In Process (Tylenol Tablet) 02:30 Ipratropium Medneb PHA 07/16/25 In Process (Atrovent Medneb) 02:30 Albuterol Medneb PHA 07/16/25 In Process (Ventolin Medneb) 02:30 Med Neb Initial RT 07/16/25 Logged Treatment 02:17 Prednisone Tablet PHA 07/16/25 Logged 10:00 Oxygen By Nasal RT 07/16/25 Transmitted Cannula 02:17 Electrocardigram EKG 07/16/25 Logged 02:17 Ceftriaxone 1gm/50ml PHA 07/16/25 Logged (Rocephin) 09:00 Azithromycin 500mg/ PHA 07/16/25 Logged 250ml (Zithromax 50 10:00 Guaifenesin-Dextromet PHA 07/16/25 Logged Liquid (Robitussin 02:30 Rapid Influenza A&B LAB 07/16/25 Logged 02:17 Covid19 Antigen Charley LAB 07/16/25 Logged Respiratory Syncytial LAB 07/16/25 Logged Virus Ag 02:17 Thyroid Stimulating LAB 07/16/25 Logged Hormone 02:17 Vitamin B12 LAB 07/16/25 Logged 02:17 Folate (Folic Acid) LAB 07/16/25 Logged 02:17 Hi Wound Care HDVI 07/16/25 Transmitted 02:17 Cleanse Wound With Ns KEENA 07/16/25 In Process 02:17 Cleanse Wound W/ KEENA 07/16/25 In Process Sterile Gauze 02:17 Wound Dressing: KEENA 07/16/25 In Process 02:17 Regular Diet DIET 07/16/25 Transmitted Breakfast Hemoglobin A1c LAB 07/16/25 Logged 02:17 Date of Service: Jul 15, 2025 Billing Provider: JASON FLETCHER MD Common Visit Codes: 24831-[id number] INP/OBS CARE (HIGH) Secondary Visit Codes: [id number] CARE PLAN 30 MINUTES ASHOK CARREON RESIDENT Jul 16, 2025 02:34
[2025-07-16 09:04] LABS: Alanine Aminotransferase 26 U/L (7-40); Alkaline Phosphatase 76 U/L (46-116); BUN/Creatinine Ratio 10.9 (10.0-20.0); Bilirubin, Total 0.3 mg/dL (0.2-1.0); Potassium 4.5 mmol/L (3.5-5.1); Sodium 139 mmol/L (136-145)
[2025-07-16 09:05] LABS: Anion Gap 16 (5-15)
[2025-07-16 09:08] LABS: Albumin 4.8 g/dL (3.2-4.8); Blood Urea Nitrogen 7 mg/dL (9-23); Calcium 10.1 mg/dL (8.7-10.4); Carbon Dioxide 16 mmol/L (20-31); Chloride 107 mmol/L (98-107); Glucose 116 mg/dL (74-106); Total Protein 8.7 g/dL (5.7-8.2)
[2025-07-16 09:13] LABS: Hematocrit 43.7 % (36.0-46.0); Hemoglobin 14.8 g/dL (12.2-16.2); Mean Corpuscular Hemoglobin 27.1 pg (28.0-32.0); Mean Corpuscular Volume 80.3 fL (80.0-100.0); Nucleated Red Blood Cells % 0.2 %
[2025-07-16 09:17] LABS: COVID19 ANTIGEN SOFIA FIA NEGATIVE (NEGATIVE)
[2025-07-16] MEDS ORDERED: predniSONE 20 MG TAB PO SCH (10:00)
[2025-07-16] MEDS: AZITHROMYCIN 500MG/ 250ML 250 ML IV SCH (10:54)
[2025-07-16] MEDS: SULFAMETHOX W/TRIMETH(800/160MG) DS TAB PO SCH (10:55)
[2025-07-16] MEDS: ENOXAPARIN SOD 40 MG/0.4 ML SYRINGE SC SCH (11:03)
--- NOTE | 2025-07-16 11:29 | DVHSR ---
APPROVED REPORT EXAM: Two-dimensional and M-mode echocardiogram with Doppler and color Doppler. Blood Pressure: 98/45 mmHg INDICATION Eval for structural heart disease RISK FACTORS Height: 67, Weight: 321 DIMENSIONS LVDd 4.2 (3.8-5.7cm) LA (2D) (1.9-4.0cm) Aortic Root 3.7 (2.0-3.7cm) LVDs 2.9 (2.5-4.0cm) LA (MM) (1.9-4.0cm) Aortic Cusp Exc 1.6 (1.5-2.0cm) EF (%) 58.0 (55-70%) Rt. Atrium (1.9-4.0cm) Asc. Aorta cm Mitral Valve Mitral Mitral Stenosis E wave 0.75m/s MV Mean GR. mmHg A wave 0.55m/s MV Peak GR. mmHg E/A ratio 1.4 2D MVA cm2 DECEL Time 203ms PRESS 1/2 Time 52ms IVRT ms Dop MVA 4.23cm2 Aortic Valve Aortic Valve Aortic Stenosis V1 1.32m/s AO Mean GR. 6mmHg V2 1.67m/s AO Peak GR. 11mmHg LVOT Diameter 1.7 (1.8-2.4cm) Doppler JOHANNY 1.79cm2 Pulmonic Valve V2 1.15m/s Other Information Technically limited study due to body habitus. Conclusion EF >55% CARDIAC CHAMBERS WNL VALVULAR ANATOMY WNL
--- NOTE | 2025-07-16 11:29 | DVHINCON2 ---
Date of service: Jul 16, 2025 Reason for Consultation tailbone wound History of Present Illness History Source: Patient HPI 25 year old female presented to the Er with shortness of breath. She also stated she has a wound near upper tailbone left buttock which has been treated with antibiotics and packing which is changed in the Urgent care daily. Home Meds Active Scripts Sulfamethoxazole W/Trimethopri (Bactrim Ds Tablet) 1 Tab Tb, 1 TAB PO BID for 10 Days, #20 TAB Prov:ANA M FAGAN 07/12/25 Ibuprofen (Ibuprofen) 800 Mg Tab, 1 TAB PO TID, #30 TAB Prov:ANA M FAGAN 07/12/25 Past Medical History Cardiac: No pertinent Hx Pulmonary: No pertinent Hx Central Nervous System: No pertinent Hx GI: No pertinent Hx Hemotology/Oncology: No pertinent Hx Hepatobiliary: No pertinent Hx Psychiatric: Anxiety Musculoskeletal: No pertinent Hx Rheumotologic: No pertinent Hx Infectious Disease: No peritnent Hx ENT: No pertinent Hx Renal/: No pertinent Hx Endocrine: No pertinent Hx Dermatology: No pertinent Hx Others incision and drainage of tailbone abscess Family History: No pertinent Hx Patient Family History: Asthma G8 MOTHER Cerebrovascular accident (CVA) G8 FATHER Diabetes mellitus G8 MOTHER Smoker: No Hx (Negative) Alocohol: None Drugs: None Lives with: With family Review of Systems Constitutional: No symptom reported Ears, Nose, & Throat: No symptom reported Eyes: No symptom reported Pulmonary/Respiratory: No symptom reported Cardiovascular: No symptom reported Gastrointestinal: No symptom reported Genitourinary: No symptom reported Musculoskeletal: No symptom reported Skin: No symptom reported Psychiatric: No symptom reported Endocrine: No symptom reported Hemotologic/Lymphatic: No symptom reported All Other Systems upper left buttock/tailbone wound H&P Exam Vital Signs Vital Signs Date Time Temp Pulse Resp B/P (MAP) Pulse Ox O2 Delivery O2 Flow Rate FiO2 07/16/25 10:25 Nasal Cannula* 1 24 07/16/25 10:25 97.8 72 18 99/48 (65) 95 97.8 General Appeara: Well developed, Well nourished, Obese Head Exam: Normal inspection Neck Exam: Normal inspection Eye Exam: bilateral eye Normal inspection Nasal Exam: Normal inspection Mouth: Normal Inspection Pulmonary/Respiratory: Normal inspection, Normal breath sounds Abdominal Exam: Normal bowel sounds Rectal Exam: Deferred Skin Exam: Other (wound upper left buttock) Wounds upper buttock left of tail bone wound with packing Labs/Xrays Labs Test 07/16/25 08:11 07/16/25 02:56 07/15/25 21:30 07/15/25 14:37 Range/Units Influenza Type A Antigen Negative Negative Influenza Type B Antigen Negative Negative SARS-CoV-2 Antigen (Rapid) Negative NEGATIVE White Blood Count 8.0 4.4-10.8 10^3/uL Red Blood Count 5.44 H 4.0-5.20 10^6/uL Hemoglobin 14.8 12.2-16.2 g/dL Hematocrit 43.7 36.0-46.0 % Mean Corpuscular Volume 80.3 80.0-100.0 fL Mean Corpuscular Hemoglobin 27.1 L 28.0-32.0 pg Mean Corpuscular Hemoglobin Concent 33.8 32.0-36.0 g/dL Red Cell Distribution Width 14.6 H 11.8-14.3 % Platelet Count 405 140-450 10^3/uL Mean Platelet Volume 7.4 6.9-10.8 fL Neutrophils (%) (Auto) 85.8 H 37.0-80.0 % Lymphocytes (%) (Auto) 11.6 10.0-50.0 % Monocytes (%) (Auto) 2.4 0.0-12.0 % Eosinophils (%) (Auto) 0.0 0.0-7.0 % Basophils (%) (Auto) 0.2 0.0-2.0 % Neutrophils # (Auto) 6.9 1.6-8.6 10 ^3/uL Lymphocytes # (Auto) 0.9 0.4-5.4 10 ^3/uL Monocytes # (Auto) 0.2 0-1.3 10 ^3/uL Eosinophils # (Auto) 0 0-0.8 10 ^3/uL Basophils # (Auto) 0 0-0.2 10 ^3/uL Nucleated Red Blood Cells 0.2 % Sodium Level 139 136-145 mmol/L Potassium Level 4.5 3.5-5.1 mmol/L Chloride Level 107 98-107 mmol/L Carbon Dioxide Level 16 L 20-31 mmol/L Anion Gap 16 H 5-15 Blood Urea Nitrogen 7 L 9-23 mg/dL Creatinine 0.64 0.550-1.02 mg/dL Glomerular Filtration Rate Calc 126 >90 mL/min BUN/Creatinine Ratio 10.9 10.0-20.0 Serum Glucose 116 H 74-106 mg/dL Hemoglobin A1c 5.4 <5.7 % A1C Calcium Level 10.1 8.7-10.4 mg/dL Total Bilirubin 0.3 0.2-1.0 mg/dL Aspartate Amino Transferase (AST) 20 13-40 U/L Alanine Aminotransferase (ALT) 26 7-40 U/L Alkaline Phosphatase 76 46-116 U/L B-Type Natriuretic Peptide 5.11 0-100 pg/mL Total Protein 8.7 H 5.7-8.2 g/dL Albumin 4.8 3.2-4.8 g/dL Thyroid Stimulating Hormone (TSH) 1.83 0.55-4.78 uIU/mL Urine Test Negative Negative D-Dimer, Quantitative 0.54 H 0.0-0.49 mg/L FEU Assessment/Plan Problem List: (1) Buttock wound Plan patient has a wound locate upper left buttock, patient states she had an incision of drainage of the wound and has been reciving wound care from urgent care no purulent drainage , erythema noted on exam I spoke with patient regarding home antibiotics and followup in surgical clinic and she agreed to plan Plan: recommend wound repack every 24 hours send home with antibiotics No surgical intervention at this time patient to follow up in surgery clinic Dr. Montes De Oca agrees with plan Plan discussed with: Patient Visit Coding Surgery Date of Service if different f: Jul 16, 2025 Billing Provider: GAMALIEL MONTES DE OCA MD Surgery Visit Codes: 24937 - INP CONSULT <80 MIN CHRISTIANO REN NP Jul 16, 2025 11:29
[2025-07-16] MEDS: methylPREDNISolone SOD SUCC 125 MG/2 ML VL IV SCH (14:21)
[2025-07-16] MEDS ORDERED: RIS1T PO (16:57)
[2025-07-16] MEDS ORDERED: FLUO-125 PO (16:57)
[2025-07-16] MEDS ORDERED: LAMO200T34 PO (16:58)
[2025-07-16] MEDS: ACETAMINOPHEN 325 MG TAB PO PRN (21:05)
[2025-07-17] VITALS (8 sets, daily range): BP systolic 96–125; BP diastolic 52–77; PULSE 59–83; RESP 16–18; TEMP 37.1; O2SAT 89–94
[2025-07-17] MEDS: PANTOPRAZOLE 40 MG TAB PO SCH (05:49)
--- NOTE | 2025-07-17 13:59 | DVHDS2 ---
Discharge Summary Date of Admission Jul 15, 2025 at 23:46 Date of Discharge: Jul 17, 2025 Labs/Diagnostic Data: Laboratory Results Test 07/16/25 08:11 07/16/25 02:56 07/15/25 21:30 07/15/25 14:37 Influenza Type A Antigen Negative (Negative) Influenza Type B Antigen Negative (Negative) SARS-CoV-2 Antigen (Rapid) Negative (NEGATIVE) White Blood Count 8.0 10^3/uL (4.4-10.8) Red Blood Count 5.44 10^6/uL (4.0-5.20) Hemoglobin 14.8 g/dL (12.2-16.2) Hematocrit 43.7 % (36.0-46.0) Mean Corpuscular Volume 80.3 fL (80.0-100.0) Mean Corpuscular Hemoglobin 27.1 pg (28.0-32.0) Mean Corpuscular Hemoglobin Concent 33.8 g/dL (32.0-36.0) Red Cell Distribution Width 14.6 % (11.8-14.3) Platelet Count 405 10^3/uL (140-450) Mean Platelet Volume 7.4 fL (6.9-10.8) Neutrophils (%) (Auto) 85.8 % (37.0-80.0) Lymphocytes (%) (Auto) 11.6 % (10.0-50.0) Monocytes (%) (Auto) 2.4 % (0.0-12.0) Eosinophils (%) (Auto) 0.0 % (0.0-7.0) Basophils (%) (Auto) 0.2 % (0.0-2.0) Neutrophils # (Auto) 6.9 10 ^3/uL (1.6-8.6) Lymphocytes # (Auto) 0.9 10 ^3/uL (0.4-5.4) Monocytes # (Auto) 0.2 10 ^3/uL (0-1.3) Eosinophils # (Auto) 0 10 ^3/uL (0-0.8) Basophils # (Auto) 0 10 ^3/uL (0-0.2) Nucleated Red Blood Cells 0.2 % Sodium Level 139 mmol/L (136-145) Potassium Level 4.5 mmol/L (3.5-5.1) Chloride Level 107 mmol/L (98-107) Carbon Dioxide Level 16 mmol/L (20-31) Anion Gap 16 (5-15) Blood Urea Nitrogen 7 mg/dL (9-23) Creatinine 0.64 mg/dL (0.550-1.02) Glomerular Filtration Rate Calc 126 mL/min (>90) BUN/Creatinine Ratio 10.9 (10.0-20.0) Serum Glucose 116 mg/dL (74-106) Hemoglobin A1c 5.4 % A1C (<5.7) Calcium Level 10.1 mg/dL (8.7-10.4) Total Bilirubin 0.3 mg/dL (0.2-1.0) Aspartate Amino Transferase (AST) 20 U/L (13-40) Alanine Aminotransferase (ALT) 26 U/L (7-40) Alkaline Phosphatase 76 U/L (46-116) B-Type Natriuretic Peptide 5.11 pg/mL (0-100) Total Protein 8.7 g/dL (5.7-8.2) Albumin 4.8 g/dL (3.2-4.8) Vitamin B12 Level 843 pg/mL (211-911) Folic Acid 11.38 ng/mL (>5.38) Thyroid Stimulating Hormone (TSH) 1.83 uIU/mL (0.55-4.78) Urine Test Negative (Negative) D-Dimer, Quantitative 0.54 mg/L FEU (0.0-0.49) Other Laboratory Tests 07/16/25 02:56 Brief Hx & Hospital Course: Patient was admitted for shortness of breath, possible acute pneumonitis. Will be discharged with Zithromax. Patient has a chronic wound, will need to followup in surgical clinic. Condition at Discharge: Poor Final Diagnosis/Problems List Acute Pneumonitis Chronic Back Wound Discharge Disposition: Home Discharge Instruct/Medications Diet: Regular Activity: Light activity Follow Up/Referral: Dr. Montes De Oca in 1 week Medications: Zithromax Scheduled Fluoxetine Hcl (Fluoxetine Hcl), 80 MG PO DAILY, (Reported) Ibuprofen (Ibuprofen), 1 TAB PO TID Lamotrigine (Lamotrigine), 1 TAB PO BID, (Reported) Risperidone (RisperDAL TABLET), 1 TAB PO QPM, (Reported) Sulfamethoxazole W/Trimethopri (Bactrim Ds Tablet), 1 TAB PO BID Discharge Statement: "Patient was advised to return to the ER or call 911 if any headaches, dizziness, shortness of breath, chest pain, abdominal pain, bleeding, fevers, or worsening of medical condition. Patient was counseled about treatment plan, medications, possible side effects, patientverbalized understanding. All questions were answered to the best of my ability. This discharge took greater then 30 minutes in planning, reviewing documentation, counseling the patient, and discussing with other team members." ASSESSMENT ASSESSMENT Assessment Date of Service: Jul 17, 2025 Billing Provider: JASON FLETCHER MD Common Visit Codes: 16444-MHM/OBS DISCH DAY >30min JASON FLETCHER MD Jul 17, 2025 13:59
[2025-07-17] MEDS ORDERED: AZIT-74 PO (16:26)
== END 2025-07-17 17:42 | disposition home or self-care (01) | DRG 206 ==
LOC: ER 14:06 → OVERFLOW 23:46 → WEST WING 07-16 16:14
PROVIDERS: ADMIT Internal Medicine; ATTEND Internal Medicine
DX: J98.4 Other disorders of lung (principal); L02.212 Cutaneous abscess of back [any part, except buttock and flank]; J45.909 Unspecified asthma, uncomplicated; F12.90 Cannabis use, unspecified, uncomplicated; F41.9 Anxiety disorder, unspecified; R09.02 Hypoxemia; Z20.822 Contact with and (suspected) exposure to COVID-19; Z83.3 Family history of diabetes mellitus; Z82.5 Family history of asthma and other chronic lower respiratory diseases; Z82.3 Family history of stroke; J20.9 Acute bronchitis, unspecified
CPT/HCPCS: 36415; 71046; 71275; 80048; 80053; 81025; 82607; 82746; 83036; 83880; 84443; 85025; 85379; 87081; 87426; 87804; 93306; 94640; 96365; 96367; 99291; G0378; J1100